=== PATIENT | female | born 1955 | race Caucasian/White ===

== ENCOUNTER 2018-06-14 08:47 | Observation (INO) | payer OTHER ==
[~2018-06-14] VITALS: Ht 165.1 cm; Wt 109.0 kg
[~2018-06-14 08:47] MED LIST: AMLO5 PO; Amoxicillin500 MG PO; Antivert25 MG PO; CHOL10002 PO; COMPAZINE10 MG PO; HYDACE5 PO; KETO10 PO; LISI5 PO; NAPR550 PO; Norco 5-325 Ta1 EACH PO; PARO20 PO; PENVK500 PO; RXHYDACE PO; RXNAPNA550 PO; TOCO400 PO; VITAMIN B122500 MC1
[2018-06-14 09:58] LABS: BASOPHILS ABSOLUTE AUTO 0.03 K/mm3 (0.00-0.23); BASOPHILS PERCENT AUTO 0 % (0-2); EOSINOPHILS ABSOLUTE AUTO 0.05 K/mm3 (0.00-0.68); EOSINOPHILS PERCENT AUTO 0 % (0-6); Hematocrit 44.9 % (33.0-51.0); Hemoglobin 14.7 g/dL (11.5-16.0); IMMATURE GRAN ABSOLUTE AUTO 0.06 K/mm3 (0.00-0.10); IMMATURE GRAN PERCENT AUTO 0 % (0-1); LYMPHOCYTES ABSOLUTE AUTO 1.38 K/mm3 (0.84-5.20); LYMPHOCYTES PERCENT AUTO 9 % (21-46); MONOCYTES ABSOLUTE AUTO 0.99 K/mm3 (0.16-1.47); MONOCYTES PERCENT AUTO 6 % (4-13); Mean Corpuscular HGB 28.8 pg (26.0-34.0); Mean Corpuscular HGB Conc 32.7 g/dL (31.5-36.5); Mean Corpuscular Volume 88 fL (80-100); Mean Platelet Volume 9.2 fL (9.1-12.4); NEUTROPHILS ABSOLUTE AUTO 13.08 K/mm3 (1.96-9.15); NEUTROPHILS PERCENT AUTO 84 % (41-73); Platelet Count 290 K/mm3 (150-400); RDW Coefficient Variation 13.8 % (11.7-14.2); RDW Standard Deviation 44.3 fL (35.1-46.3); White Blood Cell Count 15.59 K/mm3 (4.00-11.30)
[2018-06-14 10:27] LABS: Alanine Aminotransfer (ALT/SGP 24 U/L (12-78); Albumin, Blood 3.8 g/dL (3.4-5.0); Albumin/Globulin Ratio 0.9 (0.8-1.8); Alk Phos 72 U/L (50-136); Anion Gap 9 mmol/L (6-16); Aspartate Aminotrans (AST/SGOT 18 U/L (12-37); Bilirubin, Total 1.3 mg/dL (0.1-1.0); Blood Urea Nitrogen 20 mg/dL (8-24); Bun/Creatinine Ratio 25.9 (12.0-20.0); CO2, Blood 26 mmol/L (21-32); Calcium, Blood 9.1 mg/dL (8.5-10.1); Chloride, Blood 102 mmol/L (98-108); Creatinine, Blood 0.77 mg/dL (0.40-1.00); Globulin, Blood 4.4 g/dL (2.2-4.0); Glomerular Filtration Rate >60 (60-); Glucose, Blood 127 mg/dL (70-99); Potassium, Blood 3.3 mmol/L (3.5-5.5); Sodium, Blood 137 mmol/L (136-145); Total Protein, Blood 8.2 g/dL (6.4-8.2)
[2018-06-14] MEDS ORDERED: HYDCHL25 PO (10:39)
[2018-06-14 12:46] LABS: Bilirubin, Urine Neg (Neg); Blood, Urine 1+ (Neg); Glucose Qualitative, Urine Neg (Neg); Ketones, Urine Neg (Neg); Leukocyte Esterase, Urine 1+ (Neg); Nitrite, Urine Pos (Neg); Protein, Urine 1+ (Neg); Urobilinogen, Urine NORM (Normal)
[2018-06-14 13:22] LABS: Appearance, Urine Clear (Clear); Color, Urine Yellow (P-Yellow)
[2018-06-14 13:26] LABS: Bacteria Many /hpf; Hyaline Casts 0-2 /lpf (0-2); Red Blood Cells, Urine 0-2 /hpf (0-2); Squamous Epithelial Cells Few /hpf (Few)
--- NOTE | 2018-06-14 15:46 | NUR ---
INTO [facility] VIA [employer]. PT REPORTS INTERMITTENT NAUSEA AND ABDOMINAL PAIN 11/02. PT MED WITH MORPHINE PRIOR TO DEPARTURE FROM ER. History, Chart, Medications and Allergies reviewed before start of procedure.Lungs clear T/O to Auscultation.PT STATES THAT SHE HAD A SIP OF WATER APROXIMATELY ONE HOUR AGE. Surgical site prepped with 2% Chlorhexidine cloth wipe.
[2018-06-15 04:08] LABS: BASOPHILS ABSOLUTE AUTO 0.02 K/mm3 (0.00-0.23); BASOPHILS PERCENT AUTO 0 % (0-2); EOSINOPHILS ABSOLUTE AUTO 0.02 K/mm3 (0.00-0.68); EOSINOPHILS PERCENT AUTO 0 % (0-6); Hematocrit 36.9 % (33.0-51.0); Hemoglobin 11.9 g/dL (11.5-16.0); IMMATURE GRAN ABSOLUTE AUTO 0.06 K/mm3 (0.00-0.10); IMMATURE GRAN PERCENT AUTO 1 % (0-1); LYMPHOCYTES ABSOLUTE AUTO 1.31 K/mm3 (0.84-5.20); LYMPHOCYTES PERCENT AUTO 10 % (21-46); MONOCYTES ABSOLUTE AUTO 0.89 K/mm3 (0.16-1.47); MONOCYTES PERCENT AUTO 7 % (4-13); Mean Corpuscular HGB 29.2 pg (26.0-34.0); Mean Corpuscular HGB Conc 32.2 g/dL (31.5-36.5); Mean Platelet Volume 8.9 fL (9.1-12.4); NEUTROPHILS ABSOLUTE AUTO 10.57 K/mm3 (1.96-9.15); NEUTROPHILS PERCENT AUTO 82 % (41-73); Platelet Count 216 K/mm3 (150-400); RDW Coefficient Variation 13.9 % (11.7-14.2); RDW Standard Deviation 46.5 fL (35.1-46.3); Red Blood Cell Count 4.07 M/mm3 (3.80-5.20); White Blood Cell Count 12.87 K/mm3 (4.00-11.30)
[2018-06-15 04:12] LABS: Mean Corpuscular Volume 91 fL (80-100)
--- NOTE | 2018-06-15 05:19 | NUR ---
CONTINUES IMPROVING SINCE ADMISSION FROM PACU. ABLE TO AMBULATED TO BATHROOM WITHOUT ASSISTANCE. PAIN IS WELL MANAGED WITH TORADOL AND PERCOCET. NO ISSUES WITH URINATION, OR N/V. ABLE TO TOLERATED OFFERED FOOD. NORMAL BOWEL SOUNDS NOTED. STATES THAT SHE IS LOOKING FORWARD TO GOING HOME TODAY. DENIES PAIN, DISCOMFORT, OR FURTHER NEEDS AT THIS TIME. SAFETY MEASURES IN PLACE. WILL GIVE HAND OFF TO ONCOMING SHIFT USING SBAR DURING BEDSIDE REPORT.
--- NOTE | 2018-06-15 07:25 | NUR ---
REPORT FROM NIKO VANG. ASSUMED PT CARE. PT RESTING IN POSITION OF COMFORT. NADN. RESP EVEN AND NONLABORED. WILL ASSESS WHEN AWAKE.
--- NOTE | 2018-06-15 07:37 | NUR ---
PIV DIFFICULT TO FLUSH WHEN STARTING ABX. CONTINUED TO SHOW DISTAL OCCLUSION. NEW 22G PIV PLACED TO INNER ASPECT OF RIGHT WRIST X2 ATTEMPT. GOOD BLOOD RETURN NOTED, FLUSHES WITH EASE, ABX STARTED PER MD ORDERS. 20G TO RIGHT FA REMOVED WITH CATH TIP INTACT, TOLERATED WELL. SAFETY MEASURES IN PLACE. WILLCONTINUE TO MONITOR.
--- NOTE | 2018-06-15 10:15 | NUR ---
PT ACCIDENTALLY PULLED IV TO RIGHT WRIST. AREA CLEANED AND DRESSED WITH PRESSURE DRESSING. WILL NOTIFY PROVIDER.
--- NOTE | 2018-06-15 10:42 | NUR ---
PT MEDICATED WITH 1 NORCO PO PER MAR.
--- NOTE | 2018-06-15 10:58 | NUR ---
THIS RN SPOKE WITH DR EDGAR RE NO IV ACCESS AND PT READINESS FOR DC. PLAN TO SWITCH MEDS TO PO AND DC.
--- NOTE | 2018-06-15 12:15 | NUR ---
PT MORE COMFORTABLE. DENIES NEEDS. WILL CONT TO MONITOR.
--- NOTE | 2018-06-15 13:25 | NUR ---
PT IN NO DISTRESS. FAMILY AT BEDSIDE. AWAITING DR EDGAR FOR DC.
--- NOTE | 2018-06-15 13:58 | NUR ---
pt medicated with 1 norco per mar for c/o pain 09/02. pt asking when dr tony will be by for dc. explained to pt that provider might still be in or. pt verbalized understanding.
--- NOTE | 2018-06-15 15:24 | NUR ---
PT GIVEN DC INSTRUCTIONS AND RX FOR AUGMENTIN AND NORCO. T UNDERSTANDS INSTRUCTIONS.
== END 2018-06-15 15:24 | disposition home or self-care (01) ==
LOC: ER 08:47 → SURS 08:48 → ER 15:35 → SURS 15:35 → ER 16:09 → SURS 16:09
PROVIDERS: Emergency Medicine; ADMIT Surgery
PROC: 0DTJ4ZZ Resection of Appendix, Percutaneous Endoscopic Approach (ICD-10-PCS; principal; 2018-06-15)
DX: K35.30 Acute appendicitis with localized peritonitis, without perforation or gangrene (principal); K66.0 Peritoneal adhesions (postprocedural) (postinfection); N39.0 Urinary tract infection, site not specified; D72.829 Elevated white blood cell count, unspecified; I10 Essential (primary) hypertension; F32.9 Major depressive disorder, single episode, unspecified; Z88.8 Allergy status to other drugs, medicaments and biological substances; Z79.899 Other long term (current) drug therapy
CPT/HCPCS: 36415; 74177; 80053; 81001; 83690; 85025; 87077; 87086; 87186; 88304; 93005; 93010; 96361; 96365-59; 96375; 96376; 99285-25; G0378; J0295; J1885; J2250; J2270; J2405; J2710; J3010; J7030; J7120; Q9967

== ENCOUNTER 2021-07-14 13:54 | Emergency (ER) | payer OTHER ==
[~2021-07-14] VITALS: Ht 160 cm; Wt 102.5 kg
[~2021-07-14 13:54] MED LIST changes: +HYDCHL25 PO
[2021-07-14 15:03] LABS: BASOPHILS ABSOLUTE AUTO 0.02 K/mm3 (0.00-0.23); BASOPHILS PERCENT AUTO 0 % (0-2); EOSINOPHILS ABSOLUTE AUTO 0.14 K/mm3 (0.00-0.68); EOSINOPHILS PERCENT AUTO 2 % (0-6); Hematocrit 44.4 % (33.0-51.0); Hemoglobin 14.6 g/dL (11.5-16.0); IMMATURE GRAN ABSOLUTE AUTO 0.03 K/mm3 (0.00-0.10); IMMATURE GRAN PERCENT AUTO 0 % (0-1); LYMPHOCYTES ABSOLUTE AUTO 1.77 K/mm3 (0.84-5.20); LYMPHOCYTES PERCENT AUTO 21 % (21-46); MONOCYTES ABSOLUTE AUTO 0.66 K/mm3 (0.16-1.47); MONOCYTES PERCENT AUTO 8 % (4-13); Mean Corpuscular HGB 28.9 pg (26.0-34.0); Mean Corpuscular HGB Conc 32.9 g/dL (31.5-36.5); Mean Corpuscular Volume 88 fL (80-100); Mean Platelet Volume 9.7 fL (9.1-12.4); NEUTROPHILS PERCENT AUTO 70 % (41-73); Platelet Count 310 K/mm3 (150-400); RDW Coefficient Variation 14.3 % (11.7-14.2); RDW Standard Deviation 45.9 fL (35.1-46.3); Red Blood Cell Count 5.05 M/mm3 (3.80-5.20); White Blood Cell Count 8.62 K/mm3 (4.00-11.30)
[2021-07-14 15:16] LABS: Alanine Aminotransfer (ALT/SGP 33 U/L (12-78); Albumin, Blood 3.8 g/dL (3.4-5.0); Albumin/Globulin Ratio 0.9 (0.8-1.8); Alk Phos 72 U/L (50-136); Anion Gap 8 mmol/L (6-16); Aspartate Aminotrans (AST/SGOT 31 U/L (12-37); Bilirubin, Total 0.5 mg/dL (0.1-1.0); Blood Urea Nitrogen 17 mg/dL (8-24); Bun/Creatinine Ratio 31.7 (12.0-20.0); CO2, Blood 29 mmol/L (21-32); Calcium, Blood 9.7 mg/dL (8.5-10.1); Chloride, Blood 103 mmol/L (98-108); Creatinine, Blood 0.54 mg/dL (0.40-1.00); Globulin, Blood 4.2 g/dL (2.2-4.0); Glomerular Filtration Rate >60 (60-); Glucose, Blood 149 mg/dL (70-99); Potassium, Blood 3.8 mmol/L (3.5-5.5); Sodium, Blood 140 mmol/L (136-145)
[2021-07-14] MEDS ORDERED: NEURONTIN300 MG PO (15:54)
[2021-07-14 16:44] LABS: Influenza A, PCR NEGATIVE (NEGATIVE); Influenza B, PCR NEGATIVE (NEGATIVE); Resp Syncytial Virus, PCR NEGATIVE (NEGATIVE); SARS-Cov-2 (COVID-19) PCR, MMC NEGATIVE (NEGATIVE)
== END 2021-07-14 18:58 | disposition home or self-care (01) ==
LOC: ER 13:54
PROVIDERS: Physician Assistant
DX: R61 Generalized hyperhidrosis (principal); R42 Dizziness and giddiness; Z88.8 Allergy status to other drugs, medicaments and biological substances; Z79.899 Other long term (current) drug therapy; I10 Essential (primary) hypertension; Z87.891 Personal history of nicotine dependence; R07.9 Chest pain, unspecified
CPT/HCPCS: 0241U; 36415; 71045; 80053; 84484; 85025; 93005; 93010; 99284-25

== ENCOUNTER → 2022-07-21 | Outpatient (CLI) | payer OTHER ==
[~2022-07-21] MED LIST changes: +NEURONTIN300 MG PO
== END | disposition home or self-care (01) ==
LOC: LAB 11:48 → LAB SHORT 11:48
DX: N39.0 Urinary tract infection, site not specified (principal)
CPT/HCPCS: 87077; 87086; 87186

== ENCOUNTER 2022-11-07 08:55 | Emergency (ER) | payer OTHER ==
[~2022-11-07] VITALS: Ht 162.6 cm; Wt 104.3 kg
[2022-11-07] MEDS ORDERED: LISINOPRIL-HCT1 EAC1 PO (10:21)
[2022-11-07 10:23] LABS: BASOPHILS ABSOLUTE AUTO 0.03 K/mm3 (0.00-0.23); BASOPHILS PERCENT AUTO 0 % (0-2); EOSINOPHILS ABSOLUTE AUTO 0.06 K/mm3 (0.00-0.68); EOSINOPHILS PERCENT AUTO 1 % (0-6); Hematocrit 45.5 % (33.0-51.0); Hemoglobin 15.3 g/dL (11.5-16.0); IMMATURE GRAN ABSOLUTE AUTO 0.06 K/mm3 (0.00-0.10); IMMATURE GRAN PERCENT AUTO 1 % (0-1); LYMPHOCYTES ABSOLUTE AUTO 1.58 K/mm3 (0.84-5.20); LYMPHOCYTES PERCENT AUTO 12 % (21-46); MONOCYTES ABSOLUTE AUTO 0.76 K/mm3 (0.16-1.47); MONOCYTES PERCENT AUTO 6 % (4-13); Mean Corpuscular HGB 28.7 pg (26.0-34.0); Mean Corpuscular HGB Conc 33.6 g/dL (31.5-36.5); Mean Corpuscular Volume 85 fL (80-100); Mean Platelet Volume 9.2 fL (9.1-12.4); NEUTROPHILS ABSOLUTE AUTO 10.72 K/mm3 (1.96-9.15); NEUTROPHILS PERCENT AUTO 81 % (41-73); Platelet Count 303 K/mm3 (150-400); RDW Coefficient Variation 14.3 % (11.7-14.2); RDW Standard Deviation 44.4 fL (35.1-46.3); Red Blood Cell Count 5.33 M/mm3 (3.80-5.20); White Blood Cell Count 13.21 K/mm3 (4.00-11.30)
[2022-11-07 10:30] VITALS: BP 159/80
[2022-11-07 11:08] LABS: Bilirubin, Total 0.5 mg/dL (0.1-1.0); Calcium, Blood 9.4 mg/dL (8.5-10.1); Creatinine, Blood 0.81 mg/dL (0.40-1.00); Globulin, Blood 4.2 g/dL (2.2-4.0); Potassium, Blood 3.4 mmol/L (3.5-5.5); Total Protein, Blood 8.2 g/dL (6.4-8.2)
[2022-11-07 12:14] LABS: Source, Urine Clean Catch
[2022-11-07 12:36] LABS: Appearance, Urine Hazy (Clear); Bilirubin, Urine Neg (Neg); Blood, Urine 5+ (Neg); Color, Urine Red (P-Yellow); Glucose Qualitative, Urine Neg (Neg); Ketones, Urine 1+ (Neg); Leukocyte Esterase, Urine 1+ (Neg); Nitrite, Urine Neg (Neg); Protein, Urine 2+ (Neg); Specific Gravity, Urine 1.015 (1.003-1.022); Urobilinogen, Urine NORM (Normal)
[2022-11-07 13:00] LABS: Bacteria Rare /hpf; Red Blood Cells, Urine 25-50 /hpf (0-2); Squamous Epithelial Cells Rare /hpf (Few)
[2022-11-07 13:01] LABS: Mucus Light (0-Heavy)
[2022-11-07] MEDS ORDERED: HYDR1TAB94 PO (14:08)
[2022-11-07] MEDS ORDERED: CEFP200 PO (14:08)
== END 2022-11-07 15:00 | disposition home or self-care (01) ==
LOC: ER 08:55
PROVIDERS: Physician Assistant
DX: N13.2 Hydronephrosis with renal and ureteral calculous obstruction (principal); E87.6 Hypokalemia; I10 Essential (primary) hypertension; Z87.891 Personal history of nicotine dependence
CPT/HCPCS: 74177; 80053; 81001; 83690; 85025; 96361; 96374-59; 96375; 96376; 99284-25; A9270; J0780; J1170; J1885; J2405; J7030; Q9967

== ENCOUNTER 2024-02-15 02:56 | Inpatient (IN) | payer OTHER ==
[~2024-02-15] VITALS: Ht 152.4 cm; Wt 113.4 kg
[~2024-02-15 02:56] MED LIST changes: +CEFP200 PO; +HYDR1TAB94 PO; +LISINOPRIL-HCT1 EAC1 PO
[2024-02-15] MEDS ORDERED: NS 1,000 ML IV SCH ×3 (03:20→04:35)
[2024-02-15 03:21] LABS: Hematocrit 43.2 % (33.0-51.0); Hemoglobin 13.6 g/dL (11.5-16.0); Mean Corpuscular HGB 28.5 pg (26.0-34.0); Mean Corpuscular HGB Conc 31.5 g/dL (31.5-36.5); Mean Corpuscular Volume 91 fL (80-100); Mean Platelet Volume 11.3 fL (9.1-12.4); NRBC ABSOLUTE 0.09 K/mm3 (0.00-0.02); NRBC Auto 0.8 /100 WBC (0.0-0.2); Platelet Count 154 K/mm3 (150-400); RDW Coefficient Variation 14.5 % (11.7-14.2); RDW Standard Deviation 49.2 fL (35.1-46.3); Red Blood Cell Count 4.77 M/mm3 (3.80-5.20); White Blood Cell Count 11.31 K/mm3 (4.00-11.30)
[2024-02-15 03:28] LABS: PCO2 Venous 47.3 mmHg (38-42); pH Blood Venous < 6.82 (7.34-7.37)
[2024-02-15 03:29] LABS: Base Excess Venous -26.8 mmol/L; Bicarbonate Venous 6.7 mmol/L (24.0-30.0)
[2024-02-15 03:35] LABS: U Amphetamine Screen Not Detected; U Barbituate Screen Not Detected; U Benzodiazapine Screen Not Detected; U Buprenorphine Screen Not Detected; U Cannabinoids Screen DETECTED; U Cocaine Screen Not Detected; U Methadone Screen Not Detected; U Methamphetamine Screen Not Detected; U Opiates Screen DETECTED; U Oxycodone Screen Not Detected; U Phencyclidine Screen Not Detected
[2024-02-15 03:40] LABS: Albumin, Blood 2.6 g/dL (3.4-5.0); Albumin/Globulin Ratio 0.6 (0.8-1.8); Bilirubin, Total 1.4 mg/dL (0.1-1.0); Calcium, Blood 10.1 mg/dL (8.5-10.1); Creatinine, Blood 1.8 mg/dL (0.40-1.00); Globulin, Blood 4.2 g/dL (2.2-4.0); Phosphorus, Blood 6.8 mg/dL (2.5-4.9); Potassium, Blood 4.9 mmol/L (3.5-5.5); Total Protein, Blood 6.8 g/dL (6.4-8.2)
[2024-02-15 03:43] LABS: BAND PERCENT MAN 14 % (0-8); BASOPHILS PERCENT MAN 0 % (0-2); EOSINOPHILS PERCENT MAN 0 % (0-6); LYMPHOCYTES % ATYPICAL MANUAL 1 % (0-0); LYMPHOCYTES PERCENT MAN 15 % (21-46); METAMYELOCYTE ABSOLUTE MAN 0.22 K/mm3 (0.00-0.00); METAMYELOCYTE PERCENT MAN 2 % (0-0); MONOCYTES ABSOLUTE MAN 0.79 K/mm3 (0.16-1.47); MONOCYTES PERCENT MAN 7 % (4-13); MYELOCYTE ABSOLUTE MAN 0.22 K/mm3 (0.00-0.00); MYELOCYTE PERCENT MAN 2 % (0-0); NEUTROPHILS ABSOLUTE MAN 8.25 K/mm3 (1.96-9.15); SEG NEUTROPHILS PERCENT MAN 59 % (41-73); TOTAL CELLS COUNTED 100; Thyroid Stimulating Hormone 1.71 uIU/mL (0.360-4.800)
[2024-02-15] MEDS ORDERED: Cefepime HCl 2,000 MG in NS 100 ML IV SCH (03:45)
[2024-02-15] MEDS ORDERED: Cefepime HCl 2,000 MG in NS 100 ML IV ONE (03:45)
[2024-02-15] MEDS ORDERED: Insulin Human Regular 100 UNIT in NS 100 ML IV SCH (03:45)
[2024-02-15 04:00] LABS: Source, Urine Clean Catch
[2024-02-15] MEDS ORDERED: Sodium Bicarb 8.4% 1 MEQ/ML 50 ML Vial IV ONE (04:00)
[2024-02-15] MEDS ORDERED: Vasopressin 20 UNITS in NS 100 ML IV SCH (04:00)
[2024-02-15 04:07] LABS: Bilirubin, Urine Neg (Neg); Blood, Urine 4+ (Neg); Glucose Qualitative, Urine 4+ (Neg); Ketones, Urine 2+ (Neg); Leukocyte Esterase, Urine 3+ (Neg); Nitrite, Urine Pos (Neg); Protein, Urine 3+ (Neg); Specific Gravity, Urine 1.015 (1.003-1.022); Urobilinogen, Urine NORM (Normal)
[2024-02-15] MEDS ORDERED: Sodium Bicarb 8.4% Inj 100 MEQ in Sodium Chloride 0.45% 1,000 ML IV SCH ×2 (04:10→04:15)
[2024-02-15 04:17] LABS: Appearance, Urine Cloudy (Clear); Color, Urine Yellow (P-Yellow); Red Blood Cells, Urine 0-2 /hpf (0-2); White Blood Cells, Urine TNTC /hpf (0-5)
[2024-02-15 04:18] LABS: Bacteria Many /hpf; Squamous Epithelial Cells Few /hpf (Few)
[2024-02-15 04:22] LABS: Calcium, Ionized (POC) 1.09 mmol/L (1.10-1.46); Chloride (POC) 96 mmol/L (98-108); Glucose (ISTAT POC) 537 mg/dL (70-99); Hemoglobin (POC) 15.3 g/dL (12.0-16.0); Potassium (POC) 4.5 mmol/L (3.5-5.5); Sodium (POC) 127 mmol/L (135-148); Total CO2 (POC) 12 mmol/L (21-32)
[2024-02-15] MEDS ORDERED: FLU VACC TS2024-25(6MOS UP)/PF 45 MCG/0.5 ML SYRINGE IM SCH (04:35)
[2024-02-15] MEDS ORDERED: Insulin Regular 100 Unit/ML 1ML Dose IV ONE (05:00)
[2024-02-15] MEDS ORDERED: CefTRIAXone Sodium 1,000 MG in NS 100 ML IV SCH (06:00)
[2024-02-15 06:01] VITALS: BP 55/36
--- NOTE | 2024-02-15 06:51 | NUR ---
ARRIVAL TO ICU PT ARRIVED TO ICU VIA ER [facility] AT 0635. ATTEMPTED TO CALL PT FAMILY WITH NO ANSWER. PT INUTABTED WITHOUT SEDATION. INSULIN INFUSING AT 4UNITS/HR, LEVO INFUSING AT 30MCG/KG/MIN, EPI INFUSING AT 16MCG/MIN, VASOPRESSIN INFUSING AT 0.04UNITS/HR. PT TRANSFERED TO ICU BED VIA SLIDER SHEET. PT CONTINUED WITH AGONAL RHYTHM, DECLINED TO THE 30'S, PULSES CHECKED, NO PULSES OR HEART SOUNDS PRESENT. TIME OF 643, WITNESSED BY NATALI VANG. PT BROTHER IN LAW AT THE BEDSIDE. CONTINUE TO TRY AND REACH PT FAMILY. DR. GARCIAS NOTIFIED OF TOD.
[2024-02-15] MEDS ORDERED: EPINEPhrine HCl 0.1 MG/ML 10ML SYR IV ONE (16:20)
[2024-02-15] MEDS ORDERED: EPINEPhrine HCl 1 MG/ML IV IV ONE (16:20)
[2024-02-15] MEDS ORDERED: Sodium Bicarb 8.4% 50 mEq Syringe IV ONE (16:20)
[2024-02-15] MEDS ORDERED: Atropine Sulfate 0.1 MG/ML 10ML SYR IV ONE (16:20)
[2024-02-16] MEDS ORDERED: Enoxaparin 40 MG/0.4 ML SYR SC SCH (09:00)
== END 2024-02-15 06:44 | DRG 871 ==
LOC: ER 02:56 → ICUE 04:33
PROVIDERS: Emergency Medicine; ADMIT Internal Medicine
PROC: 3E033XZ Introduction of Vasopressor into Peripheral Vein, Percutaneous Approach (ICD-10-PCS; principal; 2024-02-15)
PROC: 3E03329 Introduction of Other Anti-infective into Peripheral Vein, Percutaneous Approach (ICD-10-PCS; 2024-02-15)
PROC: 5A12012 Performance of Cardiac Output, Single, Manual (ICD-10-PCS; 2024-02-15)
PROC: 0BH17EZ Insertion of Endotracheal Airway into Trachea, Via Natural or Artificial Opening (ICD-10-PCS; 2024-02-15)
PROC: 5A1935Z Respiratory Ventilation, Less than 24 Consecutive Hours (ICD-10-PCS; 2024-02-15)
DX: A41.9 Sepsis, unspecified organism (principal); R65.21 Severe sepsis with septic shock; E87.21 Acute metabolic acidosis; N17.9 Acute kidney failure, unspecified; N39.0 Urinary tract infection, site not specified; Z66 Do not resuscitate; I46.9 Cardiac arrest, cause unspecified; I10 Essential (primary) hypertension; N20.0 Calculus of kidney; E86.9 Volume depletion, unspecified; B18.2 Chronic viral hepatitis C; E66.9 Obesity, unspecified; Z86.19 Personal history of other infectious and parasitic diseases; Z87.442 Personal history of urinary calculi; Z90.710 Acquired absence of both cervix and uterus; Z90.722 Acquired absence of ovaries, bilateral; Z87.891 Personal history of nicotine dependence; Z98.890 Other specified postprocedural states; Z88.8 Allergy status to other drugs, medicaments and biological substances; Z79.899 Other long term (current) drug therapy
CPT/HCPCS: 51702; 70450; 71045; 71260; 72125; 74177; 80047; 80053; 81001; 82803; 82947; 83605; 83735; 83880; 84100; 84443; 84484; 85014; 85025; 85730; 87077; 87086; 87186; 92950; 93005; 93010; 94002; 96365-59; 96375-59; 99291-25; J0171; J0461; J7030; J7060; Q9967